=== PATIENT | female | born 1975 | race Caucasian/White ===

== ENCOUNTER 2025-06-22 12:52 | Emergency (ER) | payer SELFPAY ==
[~2025-06-22] VITALS: Ht 177.8 cm; Wt 62.7 kg
[2025-06-22 13:02] VITALS: TEMP 99.5
[2025-06-22 13:33] LABS: BASO # 0.1 10^3/uL (0.0-0.2); BASO % 1.4 % (0.0-1.0); EOS # 0.1 10^3/uL (0.0-0.5); EOS % 1.8 % (0.0-3.0); LYMPH # 1.3 10^3/uL (1.5-5.0); LYMPH % 18.3 % (24.0-44.0); MONO # 0.5 10^3/uL (0.0-0.8); MONO % 6.3 % (2.0-8.0); NEUTROPHILS # 5.1 10^3/uL (1.5-8.5); NEUTROPHILS % 71.9 % (36.0-66.0); PLATELET COUNT, AUTOMATED 126 10^3/uL (150-450)
[2025-06-22 14:09] LABS: ALT/SGPT 62 U/L (7.0-40); AST/SGOT 204 U/L (<34); CALCIUM LEVEL 9.0 MG/DL (8.5-10.1); CARBON DIOXIDE LEVEL 28 MMOL/L (20-31); CHLORIDE LEVEL 101 MMOL/L (98-107); CREATININE FOR GFR 0.55 MG/DL (0.55-1.30); GLOMERULAR FILTRATION RATE > 90.0 (>51); MAGNESIUM LEVEL 1.4 MG/DL (1.8-2.4); POTASSIUM SERUM 2.9 MMOL/L (3.5-5.1); SODIUM LEVEL 141 MMOL/L (136-145)
[2025-06-22] MEDS: NS 500 ML IV ONE (14:46)
[2025-06-22] MEDS: POTASSIUM CHLORIDE 10MEQ SR TABLET PO ONE ×2 (14:47→17:59)
[2025-06-22] MEDS: MAG SULF 1GM/100ML (MAG RUN) 1 GM in IV 1 EA IV ONE ×2 (14:47→16:39)
[2025-06-22] MEDS: NS (Normal Saline) 0.9% 1,000 ML IV ONE (16:18)
[2025-06-22] MEDS: MAGNESIUM OXIDE 400 MG TAB PO ONE (16:18)
[2025-06-22 17:36] LABS: ALT/SGPT 54.0 U/L (7.0-40); AST/SGOT 172.0 U/L (<34); MAGNESIUM LEVEL 2.0 MG/DL (1.8-2.4); POTASSIUM SERUM 3.1 MMOL/L (3.5-5.1)
[2025-06-22 17:40] LABS: AMPHETAMINES LEVEL URINE NEGATIVE (NEGATIVE); BARBITURATES URINE NEGATIVE (NEGATIVE); BENZODIAZEPINES URINE NEGATIVE (NEGATIVE)
[2025-06-22 17:41] LABS: CANNABINOIDS URINE NEGATIVE (NEGATIVE); COCAINE METABOLITE URINE NEGATIVE (NEGATIVE); METHADONE URINE NEGATIVE (NEGATIVE); OPIATES URINE NEGATIVE (NEGATIVE); PHENCYCLIDINE URINE NEGATIVE (NEGATIVE)
[2025-06-22 18:00] VITALS: BP 127/69; O2SAT 99
== END 2025-06-22 18:15 | disposition home or self-care (01) ==
LOC: EDBD 12:52 → M ED 12:52
DX: R55 Syncope and collapse (principal); G40.909 Epilepsy, unspecified, not intractable, without status epilepticus; E83.42 Hypomagnesemia; E87.6 Hypokalemia; F17.200 Nicotine dependence, unspecified, uncomplicated; Z88.0 Allergy status to penicillin
CPT/HCPCS: 36415; 70450; 72125; 80048; 80076; 80307; 83605; 83735; 84132; 85025; 93005; 93041; 94760; 96365; 96366; 99285; J3475